=== PATIENT | male | born 1985 | race Caucasian/White ===

== ENCOUNTER 2020-01-19 10:17 | Emergency (ER) | payer MEDICARE, MEDICAID ==
[~2020-01-19] VITALS: Ht 195.6 cm; Wt 162.7 kg
[~2020-01-19 10:17] MED LIST: ACET-2119 PO
[2020-01-19 10:28] VITALS: BP 146/90
[2020-01-19 10:57] LABS: BASOPHILS % (AUTO) 0.6 % (0-1); EOSINOPHILS # (AUTO) 0.1 X10'3 (0-0.9); EOSINOPHILS % (AUTO) 1.6 % (0-6); HEMATOCRIT 46.6 % (42.0-52.0); HEMOGLOBIN 15.7 g/dl (14.0-17.9); LYMPHOCYTES # (AUTO) 2.2 X10'3 (1.1-4.8); LYMPHOCYTES % (AUTO) 29.3 % (21-51); MEAN CORPUSCULAR HEMOGLOBIN 30.2 PG (27.0-31.0); MEAN CORPUSCULAR HGB CONC 33.7 g/dL (33.0-36.5); MEAN CORPUSCULAR VOLUME 89.5 FL (78-98); MEAN PLATELET VOLUME 7.7 FL (7.4-10.4); MONOCYTES # (AUTO) 0.3 X10'3 (0-0.9); MONOCYTES % (AUTO) 3.5 % (2-12); NEUTROPHILS # (AUTO) 4.9 X10'3 (1.8-7.7); PLATELET COUNT 302 X10'3 (140-440); RED CELL DISTRIBUTION WIDTH 13.5 % (11.5-14.5); WHITE BLOOD COUNT 7.5 X10'3 (4.5-11.0)
[2020-01-19 11:10] LABS: BILIRUBIN,TOTAL 0.4 MG/DL (0.1-1.0); BLOOD UREA NITROGEN 14 MG/DL (7-18); BUN/CREATININE RATIO 12.1 (5.4-32.0); CHLORIDE 106 MMOL/L (99-107); CREATININE 1.16 MG/DL (0.60-1.10); GLUCOSE 142 MG/DL (70-104); POTASSIUM 4.1 MMOL/L (3.5-5.1); SODIUM 139 MMOL/L (135-145); eGFR 71 ML/MIN
[2020-01-19 11:23] LABS: ALANINE AMINOTRANSFERASE 51 U/L (12-78); ALBUMIN/GLOBULIN RATIO 1.1 (1.1-1.5); ALKALINE PHOSPHATASE 112 IU/L (46-116); ANION GAP 4 (8-16); ASPARTATE AMINO TRANSFERASE 16 U/L (10-37); CALCIUM 9.1 MG/DL (8.5-10.1); ETHANOL < 0.010 GM/DL (0.0-0.010); TOTAL CARBON DIOXIDE 29.1 MMOL/L (24-32); TOTAL PROTEIN 7.7 G/DL (6.4-8.2)
[2020-01-19 11:51] LABS: URINE AMPHETAMINE SCREEN NEGATIVE (Neg); URINE BARBITUATE SCREEN NEGATIVE (Neg); URINE BENZODIAZEPINES SCREEN NEGATIVE (Neg); URINE CANNABINOID SCREEN NEGATIVE (Neg); URINE COCAINE SCREEN NEGATIVE (Neg); URINE METHADONE SCREEN NEGATIVE (Neg); URINE OPIATE SCREEN NEGATIVE (Neg); URINE PHENCYCLIDINE SCREEN NEGATIVE (Neg)
[2020-01-19] MEDS ORDERED: magnesium citrate 296ml oral solution PO ONE (12:15)
[2020-01-19 12:26] LABS: CLARITY,URINE CLEAR (Clear); COLOR,URINE STRAW (Yellow); GLUCOSE, URINE NEGATIVE (Neg); KETONES,URINE NEGATIVE (Neg); LEUKOCYTE ESTERASE ,URINE NEGATIVE (Neg); NITRITES, URINE NEGATIVE (Neg); OCCULT BLOOD,URINE NEGATIVE (Neg); PROTEIN,URINE NEGATIVE (Neg); UROBILINOGEN,URINE 0.2 E.U/dL (0.2-1.0)
[2020-01-19 12:29] LABS: UA COLLECTION TYPE VOIDED
[2020-01-19] MEDS ORDERED: DULO-31 PO (12:55)
[2020-01-19] MEDS ORDERED: MAGN296S68 PO (12:55)
[2020-01-19] MEDS ORDERED: IBUP-1984 PO (12:55)
[2020-01-19] MEDS ORDERED: LAMO200T2 PO (12:55)
[2020-01-19] MEDS ORDERED: ACET-2119 PO (12:55)
[2020-01-19] MEDS ORDERED: POLY17PO10 PO (12:55)
[2020-01-19] MEDS ORDERED: PRIM50TA27 PO (12:55)
[2020-01-19] MEDS ORDERED: CLON-529 PO (12:55)
[2020-01-19] MEDS ORDERED: ARIP20TA4 PO (12:55)
[2020-01-19] MEDS ORDERED: DOCU-148 PO (12:55)
[2020-01-19] MEDS ORDERED: FEXO180T94 PO (12:55)
--- NOTE | 2020-01-19 13:02 | NUR ---
PT C/O CONSTIPATION X 4 DAYS ORDER FOR MAG CITRATE RECEIVED AND GIVEN. PT AWAITING EVAL FROM [facility]. 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
[2020-01-19] MEDS ORDERED: acetaminophen 325mg tablet PO PRN (13:45)
[2020-01-19] MEDS ORDERED: magnesium citrate 296ml oral solution PO PRN (13:45)
[2020-01-19] MEDS ORDERED: ibuprofen tablet 400 MG TABLET PO PRN (13:45)
[2020-01-19] MEDS ORDERED: loratadine 10mg tablet PO SCH (13:48)
[2020-01-19] MEDS ORDERED: lamoTRIgine 100mg tablet PO SCH (13:49)
[2020-01-19] MEDS ORDERED: cloNIDine 0.1 mg tablet PO SCH (13:49)
[2020-01-19] MEDS ORDERED: docusate sod 100mg capsule PO SCH ×2 (13:49→20:00)
[2020-01-19] MEDS ORDERED: duloxetine 30mg CAPSULE.DR PO SCH ×2 (13:49→20:00)
[2020-01-19] MEDS ORDERED: polyethylene glycol 3350 17gm powd pack PO SCH (20:00)
[2020-01-19] MEDS ORDERED: ARIPIPRAZOLE 10 MG TABLET PO SCH (21:00)
[2020-01-20] MEDS ORDERED: loratadine 10mg tablet PO SCH (08:00)
[2020-01-20] MEDS ORDERED: lamoTRIgine 100mg tablet PO SCH (08:00)
== END 2020-01-19 16:56 | disposition home or self-care (01) ==
LOC: ER 10:18
DX: F31.9 Bipolar disorder, unspecified (principal); K40.90 Unilateral inguinal hernia, without obstruction or gangrene, not specified as recurrent; Z56.0 Unemployment, unspecified; Z79.899 Other long term (current) drug therapy
CPT/HCPCS: 36415; 80053; 80305; 80320; 81003; 84443; 85025; 99283

== ENCOUNTER 2020-02-07 10:13 | Day surgery (SDC) | payer MEDICARE, MEDICAID ==
[2020-01-31 14:13] LABS: BASOPHILS # (AUTO) 0.1 X10'3 (0-0.2); BASOPHILS % (AUTO) 0.9 % (0-1); EOSINOPHILS # (AUTO) 0.2 X10'3 (0-0.9); EOSINOPHILS % (AUTO) 2.3 % (0-6); LYMPHOCYTES % (AUTO) 29.1 % (21-51); MEAN CORPUSCULAR HEMOGLOBIN 29.8 PG (27.0-31.0); MEAN CORPUSCULAR HGB CONC 33.6 g/dL (33.0-36.5); MEAN CORPUSCULAR VOLUME 88.5 FL (78-98); MEAN PLATELET VOLUME 7.7 FL (7.4-10.4); MONOCYTES # (AUTO) 0.5 X10'3 (0-0.9); MONOCYTES % (AUTO) 6.9 % (2-12); NEUTROPHILS # (AUTO) 4.2 X10'3 (1.8-7.7); NEUTROPHILS % (AUTO) 60.8 % (42-75); PRE OP HEMATOCRIT 43.8 % (42.0-52.0); PRE OP HEMOGLOBIN 14.7 g/dL (14.0-17.9); PRE OP PLATELET COUNT 276 X10'3 (140-440); RED BLOOD COUNT 4.95 X10'6 (4.70-6.10); RED CELL DISTRIBUTION WIDTH 13.4 % (11.5-14.5)
[2020-01-31 14:31] LABS: ALBUMIN/GLOBULIN RATIO 1.1 (1.1-1.5); ALKALINE PHOSPHATASE 89 IU/L (46-116); BLOOD UREA NITROGEN 14 MG/DL (7-18); BUN/CREATININE RATIO 13.7 (5.4-32.0); CALCIUM 9.7 MG/DL (8.5-10.1); CHLORIDE 108 MMOL/L (99-107); CREATININE 1.02 MG/DL (0.60-1.10); PRE OP ALT 52 U/L (30-65); PRE OP ANION GAP 4 (8-16); PRE OP AST 15 U/L (10-37); PRE OP BILIRUB, TOTAL 0.3 MG/DL (0.0-1.0); PRE OP GLUCOSE 99 MG/DL (70-104); PRE OP POTASSIUM 4.2 MMOL/L (3.4-5.1); PRE OP SODIUM 143 MMOL/L (135-145); TOTAL CARBON DIOXIDE 31.2 MMOL/L (24-32); TOTAL PROTEIN 7.8 G/DL (6.4-8.2); eGFR 83 ML/MIN
[2020-01-31 14:31] LABS: CLARITY,URINE CLEAR (Clear); COLOR,URINE STRAW (Yellow); GLUCOSE, URINE NEGATIVE (Neg); KETONES,URINE NEGATIVE (Neg); LEUKOCYTE ESTERASE ,URINE NEGATIVE (Neg); NITRITES, URINE NEGATIVE (Neg); OCCULT BLOOD,URINE NEGATIVE (Neg); PH,URINE 6.5 (4.8-8.0); PROTEIN,URINE NEGATIVE (Neg); UROBILINOGEN,URINE 0.2 E.U/dL (0.2-1.0)
[2020-01-31 14:34] LABS: UA COLLECTION TYPE VOIDED
[~2020-02-07] VITALS: Ht 195.6 cm; Wt 157.8 kg
[2020-02-07] VITALS (7 sets, daily range): BP systolic 104–127; BP diastolic 68–86
[~2020-02-07 10:13] MED LIST changes: +ARIP20TA4 PO; +BUPIVAcaine/PF 2.5 mg/ml (0.25%) 30ml vial ONE; +CLON-529 PO; +DOCU-148 PO; +DULO-31 PO; +FEXO180T94 PO; +IBUP-1984 PO; +LAMO200T2 PO; +MAGN296S68 PO; +POLY17PO10 PO; +PRIM50TA27 PO; +ceFAZolin inj. 3,000 MG in normal saline 100ml IV soln 100 ML IV ONE; +famotidine 20mg tablet PO ONE; +ringers solution, lacted 1,000 ML IV SCH
[2020-02-07] MEDS ORDERED: morphine 2 MG/ML inj. syringe IV PRN (12:05)
[2020-02-07] MEDS ORDERED: labetalol 20mg/4ml (5mg/ml) syringe IV PRN (12:05)
[2020-02-07] MEDS ORDERED: hydrALAZINE 20mg/ml inj. IV PRN (12:05)
[2020-02-07] MEDS ORDERED: fentaNYL/PF 50MCG/1 ML 2ML syringe IV PRN ×2 (12:05)
[2020-02-07] MEDS ORDERED: ringers solution, lacted 1,000 ML IV SCH (12:05)
[2020-02-07] MEDS ORDERED: morphine 4 MG/ML inj SYRINge IV PRN (12:05)
[2020-02-07] MEDS ORDERED: ondansetron/PF 4mg/2ml inj IV PRN (12:05)
[2020-02-07] MEDS ORDERED: neostigmine methylsulfate 1 MG/ML 10ml vial ONE (12:38)
[2020-02-07] MEDS ORDERED: glycopyrrolate 0.2mg/ml inj ONE (12:38)
[2020-02-07] MEDS ORDERED: sevoflurane 250ml liquid IH ONE (12:38)
[2020-02-07] MEDS ORDERED: fentaNYL /PF 50mcg/ml 5ml ampule ONE (12:45)
[2020-02-07] MEDS ORDERED: MIDAZolam 5mg/5ml vial ONE (12:45)
[2020-02-07] MEDS ORDERED: LIDOcaine 2% (20mg/ml) 5ml vial ONE (12:54)
[2020-02-07] MEDS ORDERED: propofol inj 20 ML IV ONE (12:54)
[2020-02-07] MEDS ORDERED: rocuronium 10mg/ml inj IV ONE ×2 (12:56)
[2020-02-07] MEDS ORDERED: dexamethasone sod phosphate 4mg/ml inj. ONE (12:57)
[2020-02-07] MEDS ORDERED: ondansetron/PF 4mg/2ml inj ONE (12:58)
--- NOTE | 2020-02-07 15:50 | NUR ---
Received from OR via BED , accompanied by Anesthesiologist DR BELTRAN and report given by Anesthesiolgist. PATIENT WAKING UP, DENIES PAIN, V/S WNL, NEUROVASCULAR CHECKS INTACT, 20G PIV LUE, SCD ON, BANDAIDS TO LAP SIGHTS OF ABDOMEN CDI.
--- NOTE | 2020-02-07 16:30 | NUR ---
PATIENT A&OX4, DENIES PAIN, V/S WNL, NEUROVASCULAR CHECKS INTACT, 20G PIV LUE D/C, SCD OFF, BANDAIDS TO LAP SIGHTS OF ABDOMEN CDI.. I HAVE REVIEWED D/C INSTRUCTIONS WITH PATIENT AND FAMILY HAVE VERBALIZED UNDERSTANDING.PATIENT WAS D/C HOME WITH ALL BELONGINGS AND FAMILY GAVE TRANSPORT HOME
== END 2020-02-07 16:30 | disposition home or self-care (01) ==
LOC: PAS 10:13
PROVIDERS: ATTEND Surgery
DX: K40.90 Unilateral inguinal hernia, without obstruction or gangrene, not specified as recurrent (principal); D17.6 Benign lipomatous neoplasm of spermatic cord; F31.9 Bipolar disorder, unspecified; G47.30 Sleep apnea, unspecified; F41.9 Anxiety disorder, unspecified; E66.01 Morbid (severe) obesity due to excess calories; Z68.41 Body mass index [BMI] 40.0-44.9, adult; Z98.890 Other specified postprocedural states; Z79.899 Other long term (current) drug therapy; Z20.828 Contact with and (suspected) exposure to other viral communicable diseases; Z83.3 Family history of diabetes mellitus
CPT/HCPCS: 36415; 49650; 80053; 81003; 82948; 85025; 87635; 93005; C1758; C1781; J0690; J1100; J2001; J2250; J2405; J2704; J2710; J3010; J3490; A4215; A4618; J7120

== ENCOUNTER 2020-02-21 18:16 | Emergency (ER) | payer MEDICARE, MEDICAID ==
[~2020-02-21] VITALS: Ht 195.6 cm; Wt 170.4 kg
[~2020-02-21 18:16] MED LIST changes: -BUPIVAcaine/PF 2.5 mg/ml (0.25%) 30ml vial ONE; -ceFAZolin inj. 3,000 MG in normal saline 100ml IV soln 100 ML IV ONE; -famotidine 20mg tablet PO ONE; -ringers solution, lacted 1,000 ML IV SCH
--- NOTE | 2020-02-21 18:17 | NUR ---
CAREGIVER (FROM [facility]) - CAN: [phone] ROOMMATE - TAL: [phone]
[2020-02-21] MEDS ORDERED: acetaminophen 325mg tablet PO ONE (18:35)
[2020-02-21] MEDS ORDERED: normal saline 1000ML IV soln IVB ONE (18:35)
[2020-02-21] MEDS ORDERED: LORazepam 2 mg/ml vial IV ONE (18:35)
[2020-02-21] MEDS ORDERED: iohexol 350MG/ML 100ml bottle IV ONE (18:58)
[2020-02-21 19:02] LABS: BASOPHILS % (AUTO) 0.7 % (0-1); EOSINOPHILS # (AUTO) 0.1 X10'3 (0-0.9); EOSINOPHILS % (AUTO) 2.4 % (0-6); HEMATOCRIT 43.3 % (42.0-52.0); HEMOGLOBIN 14.8 g/dl (14.0-17.9); LYMPHOCYTES # (AUTO) 1.6 X10'3 (1.1-4.8); LYMPHOCYTES % (AUTO) 29.7 % (21-51); MEAN CORPUSCULAR HEMOGLOBIN 30.3 PG (27.0-31.0); MEAN CORPUSCULAR HGB CONC 34.2 g/dL (33.0-36.5); MEAN CORPUSCULAR VOLUME 88.6 FL (78-98); MEAN PLATELET VOLUME 7.4 FL (7.4-10.4); MONOCYTES # (AUTO) 0.7 X10'3 (0-0.9); MONOCYTES % (AUTO) 12.3 % (2-12); NEUTROPHILS # (AUTO) 2.9 X10'3 (1.8-7.7); NEUTROPHILS % (AUTO) 54.9 % (42-75); PLATELET COUNT 292 X10'3 (140-440); RED BLOOD COUNT 4.88 X10'6 (4.70-6.10); RED CELL DISTRIBUTION WIDTH 13.4 % (11.5-14.5); WHITE BLOOD COUNT 5.3 X10'3 (4.5-11.0)
[2020-02-21 19:13] LABS: D-DIMER 1.95 MG/L FEU (0-0.50)
[2020-02-21 19:25] LABS: ALANINE AMINOTRANSFERASE 41 U/L (12-78); ALKALINE PHOSPHATASE 112 IU/L (46-116); ANION GAP 6 (8-16); BILIRUBIN,TOTAL 0.6 MG/DL (0.1-1.0); BLOOD UREA NITROGEN 10 MG/DL (7-18); BUN/CREATININE RATIO 7.4 (5.4-32.0); CHLORIDE 107 MMOL/L (99-107); CREATININE 1.36 MG/DL (0.60-1.10); SODIUM 143 MMOL/L (135-145); TOTAL CARBON DIOXIDE 29.7 MMOL/L (24-32); TOTAL PROTEIN 8.1 G/DL (6.4-8.2); eGFR 59 ML/MIN
[2020-02-21 19:43] VITALS: BP 158/111
[2020-02-21 19:49] LABS: ASPARTATE AMINO TRANSFERASE 23 U/L (10-37); GLUCOSE 105 MG/DL (70-104); POTASSIUM 4.2 MMOL/L (3.5-5.1)
--- NOTE | 2020-02-21 20:48 | NUR ---
PATIENTS BROADCAST METEOROLOGIST ISRAEL WILL BE PICKING PATIENT UP WHEN DISCHARGED
--- NOTE | 2020-02-21 20:55 | NUR ---
PT AMBULATED AROUND ER AND HIS SATURATION DIDN'T DROP BELOW 98% AND HR 85
== END 2020-02-21 21:11 | disposition home or self-care (01) ==
LOC: ER 18:16
DX: G89.18 Other acute postprocedural pain (principal); K59.00 Constipation, unspecified; R06.00 Dyspnea, unspecified; Z56.0 Unemployment, unspecified; Z79.899 Other long term (current) drug therapy
CPT/HCPCS: 36415; 71045; 71275; 74177; 80053; 83880; 84484; 85025; 85379; 93005; 96361; 96374; 99285; J2060; J7030; Q9967

== ENCOUNTER 2020-07-04 14:51 | Emergency (ER) | payer MEDICARE, MEDICAID ==
[~2020-07-04] VITALS: Ht 195.6 cm; Wt 163.6 kg
[2020-07-04 14:59] VITALS: BP 144/97
[2020-07-04] MEDS ORDERED: INDO50CA96 PO (16:09)
== END 2020-07-04 16:30 | disposition home or self-care (01) ==
LOC: ER 14:51
DX: M10.9 Gout, unspecified (principal); M79.672 Pain in left foot; Z56.0 Unemployment, unspecified; Z79.899 Other long term (current) drug therapy
CPT/HCPCS: 73630; 99283

== ENCOUNTER 2020-09-06 09:17 | Observation (INO) | payer MEDICARE, MEDICAID ==
[~2020-09-06] VITALS: Ht 195.6 cm; Wt 181.0 kg
[2020-09-06] VITALS (19 sets, daily range): BP systolic 116–155; BP diastolic 63–104
[~2020-09-06 09:17] MED LIST changes: -ACET-2119 PO; +CHOL500049 PO; -IBUP-1984 PO; -MAGN296S68 PO; -POLY17PO10 PO; +ceFAZolin 2gm in dextrose, iso 50 ML IV ONE; +ceFAZolin/D5W- 1GM premix 50 ML IV ONE; +famotidine 20mg tablet PO ONE; +ringers solution, lacted 1,000 ML IV SCH
[2020-09-06 10:24] LABS: ALBUMIN 3.7 G/DL (3.4-5.0); ALKALINE PHOSPHATASE 78 IU/L (46-116); BLOOD UREA NITROGEN 15 MG/DL (7-18); BUN/CREATININE RATIO 13.5 (5.4-32.0); CALCIUM 8.8 MG/DL (8.5-10.1); CHLORIDE 106 MMOL/L (99-107); CREATININE 1.11 MG/DL (0.60-1.10); PRE OP ALT 54 U/L (30-65); PRE OP ANION GAP 12 (8-16); PRE OP AST 29 U/L (10-37); PRE OP BILIRUB, TOTAL 0.5 MG/DL (0.0-1.0); PRE OP GLUCOSE 95 MG/DL (70-104); PRE OP SODIUM 142 MMOL/L (135-145); TOTAL CARBON DIOXIDE 24.5 MMOL/L (24-32); TOTAL PROTEIN 7.4 G/DL (6.4-8.2); eGFR 75 ML/MIN
[2020-09-06 10:55] LABS: BASOPHILS # (AUTO) 0.1 X10'3 (0-0.2); BASOPHILS % (AUTO) 0.7 % (0-1); EOSINOPHILS # (AUTO) 0.1 X10'3 (0-0.9); EOSINOPHILS % (AUTO) 1.7 % (0-6); HEMATOCRIT 42.4 % (42.0-52.0); HEMOGLOBIN 14.5 g/dl (14.0-17.9); LYMPHOCYTES # (AUTO) 1.9 X10'3 (1.1-4.8); LYMPHOCYTES % (AUTO) 24.9 % (21-51); MEAN CORPUSCULAR HEMOGLOBIN 30.6 PG (27.0-31.0); MEAN CORPUSCULAR HGB CONC 34.2 g/dL (33.0-36.5); MEAN CORPUSCULAR VOLUME 89.6 FL (78-98); MEAN PLATELET VOLUME 7.5 FL (7.4-10.4); MONOCYTES # (AUTO) 0.5 X10'3 (0-0.9); MONOCYTES % (AUTO) 6.7 % (2-12); NEUTROPHILS # (AUTO) 5.1 X10'3 (1.8-7.7); PLATELET COUNT 254 X10'3 (140-440); RED BLOOD COUNT 4.73 X10'6 (4.70-6.10); RED CELL DISTRIBUTION WIDTH 14.1 % (11.5-14.5); WHITE BLOOD COUNT 7.8 X10'3 (4.5-11.0)
[2020-09-06] MEDS ORDERED: BUPIVAcaine/PF 2.5 mg/ml (0.25%) 30ml vial ONE (17:06)
[2020-09-06] MEDS ORDERED: bacitracin 15gm ointment TP ONE (17:06)
[2020-09-06] MEDS ORDERED: fentaNYL/PF 50MCG/1 ML 2ML syringe ONE ×2 (17:07→17:53)
[2020-09-06] MEDS ORDERED: midazolam 1 mg/ML 2ml injection ONE (17:08)
[2020-09-06] MEDS ORDERED: sevoflurane 250ml liquid IH ONE (17:09)
[2020-09-06] MEDS ORDERED: propofol inj 20 ML IV ONE (17:52)
--- NOTE | 2020-09-06 19:15 | NUR ---
Received from OR via [facility] IN STABLE CONDITION , accompanied by Anesthesiologist and [employer] MAINFRAME DEVELOPER report given by Zhanna. Addendum: 09/06/20 at 1926 by Lucinda Patterson RN Amended: Links added.
[2020-09-06] MEDS ORDERED: proCHLORperazine 10 MG/2 ml inj IV PRN (19:20)
[2020-09-06] MEDS ORDERED: ringers solution, lacted 1,000 ML IV SCH (19:20)
[2020-09-06] MEDS ORDERED: ondansetron/PF 4mg/2ml inj IV PRN ×2 (19:20→20:50)
[2020-09-06] MEDS ORDERED: morphine 4 MG/ML inj SYRINge IV PRN (19:20)
[2020-09-06] MEDS ORDERED: morphine 2 MG/ML inj. syringe IV PRN (19:20)
[2020-09-06] MEDS ORDERED: meperidine/PF 25mg/ml syringe IV PRN ×3 (19:20)
[2020-09-06] MEDS ORDERED: HYDROcodone/acetaminophen 10/325mg tab PO PRN (20:50)
[2020-09-06] MEDS ORDERED: HYDROmorphone inj. 0.5 MG/0.5 ML DISP.SYRIN IV PRN ×2 (20:50)
[2020-09-06] MEDS ORDERED: acetaminophen 325mg tablet PO PRN (20:50)
[2020-09-06] MEDS: HYDROcodone/acetaminophen 10/325mg tab PO PRN (22:27)
[2020-09-06] MEDS: normal saline 1000ml 1,000 ML IV SCH (22:32)
[2020-09-07 00:15] VITALS: BP 117/49
[2020-09-07 01:15] VITALS: BP 113/52
[2020-09-07 02:00] VITALS: BP 108/54
[2020-09-07] MEDS: HYDROcodone/acetaminophen 10/325mg tab PO PRN (05:03)
[2020-09-07] MEDS: normal saline 1000ml 1,000 ML IV SCH (06:50)
--- NOTE | 2020-09-07 06:56 | NUR ---
Patient in room ORTHO 4023. I have received report from Isabel ONOFRE and had the opportunity to ask questions and assume patient care.
[2020-09-07 07:00] VITALS: BP 115/51
[2020-09-07] MEDS ORDERED: duloxetine 30mg CAPSULE.DR PO SCH (08:00)
[2020-09-07] MEDS ORDERED: primidone 50mg tablet PO SCH (08:00)
[2020-09-07] MEDS ORDERED: loratadine 10mg tablet PO SCH (08:00)
[2020-09-07] MEDS ORDERED: docusate sod 100mg capsule PO SCH (08:00)
[2020-09-07] MEDS ORDERED: ergocalciferol (vit D2) capsule 50,000 UNITS (1,250mcg) CAPSULE PO SCH ×2 (08:00→08:48)
[2020-09-07] MEDS ORDERED: cloNIDine 0.1 mg tablet PO SCH (08:00)
[2020-09-07] MEDS ORDERED: lamoTRIgine 100mg tablet PO SCH (08:00)
[2020-09-07] MEDS ORDERED: ARIPIPRAZOLE 10 MG TABLET PO SCH (08:00)
--- NOTE | 2020-09-07 10:56 | NUR ---
Paged Case/Dust Collector Operator prior to DC, Re: Still, John RM [id number]. Pt is needing equipment before going home. Can we help? Thank you in Advance, Maria Teresa ONOFRE [phone]
--- NOTE | 2020-09-07 13:16 | NUR ---
Paged PT Re: Still, John RM 1886G. Can someone call me in regards to pt and discharge. thank you Maria Teresa ONOFRE [phone]
--- NOTE | 2020-09-07 14:44 | NUR ---
All patient discharge instructions were gone over and acknowledged Caregiver Justus was given all the paperwork and was discussed all care. Patient was given a wheelchair and sent home with all instruction. .
== END 2020-09-07 15:10 | disposition home or self-care (01) ==
LOC: PAS 09:17 → ORTHO 4S 20:50
PROVIDERS: ADMIT Podiatrist Foot & Ankle Surgery; ATTEND Podiatrist Foot & Ankle Surgery
DX: M19.072 Primary osteoarthritis, left ankle and foot (principal); M20.12 Hallux valgus (acquired), left foot; M21.612 Bunion of left foot; M20.22 Hallux rigidus, left foot
CPT/HCPCS: 20900; 28297; 36415; 73620; 80053; 85025; 93005; 96360; 96361; 97116; 97161; 97530; A6223; C1713; G0378; J0690; J2250; J2704; J3010; J3490; J7030; 76000; A4215; A4618; A6253; A6449; A7000; J7120

== ENCOUNTER 2022-08-23 11:40 | Emergency (ER) | payer MEDICARE, MEDICAID ==
[~2022-08-23] VITALS: Ht 195.6 cm; Wt 176.6 kg
[~2022-08-23 11:40] MED LIST changes: -ceFAZolin 2gm in dextrose, iso 50 ML IV ONE; -ceFAZolin/D5W- 1GM premix 50 ML IV ONE; -famotidine 20mg tablet PO ONE; -ringers solution, lacted 1,000 ML IV SCH
[2022-08-23 11:45] VITALS: BP 136/94
[2022-08-23] MEDS ORDERED: ARIP10TA15 PO (12:01)
[2022-08-23] MEDS ORDERED: PRIM50TA27 PO (12:01)
[2022-08-23] MEDS ORDERED: ARIPIPRAZOLE 10 MG TABLET PO ONE (12:05)
== END 2022-08-23 12:19 | disposition home or self-care (01) ==
LOC: ER 11:40
DX: F29 Unspecified psychosis not due to a substance or known physiological condition (principal); Z76.0 Encounter for issue of repeat prescription; F31.9 Bipolar disorder, unspecified; Z56.0 Unemployment, unspecified; Z79.899 Other long term (current) drug therapy
CPT/HCPCS: 99281